=== PATIENT | female | born 2000 | race Caucasian/White ===

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

== ENCOUNTER 2022-06-17 13:46 | Outpatient (CLI) | payer OTHER, SELFPAY ==
--- NOTE | ~2022-06-17 | US_ITS ---
EXAMINATION: US OB <= 14 weeks fetus DATE: 06/17/2022 14:56 INDICATION: Uncertain dating of during first trimester TECHNIQUE: Real-time pelvic ultrasound utilizing both a transvaginal and transabdominal probe was pe rformed. The interpreting radiologist was not present for the study. COMPARISON: None. FINDINGS: The uterus measures 10.0 x 7.0 x 7.7 cm. There is an intrauterine gestational sac. A yolk sac and fe benjamin pole are identified. The crown rump length measures 2.0 cm, which correlates with an estimated ge stational age of 8 weeks and 4 days. heart motion is identified measuring 176 beats per minute (bpm) by M-mode Doppler. The right ovary measures 3.6 x 1.9 x 2.9 cm. The left ovary measures 4.7 x 5.3 x 4.1 cm. 3.4 cm anech oic left ovarian cyst. Vascular flow identified in both ovaries on color Doppler. There is no free fl uid in the pelvis. IMPRESSION: 1. Single living fetus with heart rate of 176 bpm. 2. Gestational age by ultrasound of 8 weeks 4 day(s) +/- 5 day(s) with ultrasound estimated date of delivery (ELDA) of 01/23/2023. 3. 3.4 cm left adnexal cyst/follicle. Reviewed, dictated and finalized at location L. IMPRESSION: 1. Single living fetus with heart rate of 176 bpm. 2. Gestational age by ultrasound of 8 weeks 4 day(s) +/- 5 day(s) with ultraso und estimated date of delivery (ELDA) of 01/23/2023. 3. 3.4 cm left adnexal cyst/follicle.
== END 2022-06-17 13:47 | disposition home or self-care (01) ==
PROVIDERS: PCP Obstetrics & Gynecology Gynecology; Visit Provider Advanced Practice Midwife
DX: Z36.87 Encounter for antenatal screening for uncertain dates (principal); Z3A.08 8 weeks gestation of pregnancy
CPT/HCPCS: 76801

== ENCOUNTER 2022-09-04 12:44 | Outpatient (CLI) | payer OTHER, SELFPAY ==
--- NOTE | ~2022-09-04 | US_ITS ---
EXAMINATION: US OB /maternal detail DATE: 09/04/2022 15:35 INDICATION: Assess anatomy TECHNIQUE: Multiple obstetric sonographic images performed. FINDINGS: There is a single living fetus in breech presentation. The placenta is anterior. Amniotic fluid volu me is subjectively normal. heart rate of 143 beats per minute. The following anatomy was identified as normal: Ventricles, choroid plexus, falx and cava septum pellucidum Cerebellum and cisterna magna Nuchal fold Upper lip Spine Diaphragm Stomach Kidneys Bladder 3 vessel cord and cord insertion Bilateral upper and lower extremities including hands and feet Four-vessel heart view. Right and left ventricular outflow tract views were however not obtained. The following biometric data were obtained: BPD: 4.7 cm -> 20 weeks 1 days Head circumference: 17.5 cm -> 20 weeks 0 days Abdominal circumference: 15.9 cm -> 21 weeks 0 days Femur length: 3.4 cm -> 20 weeks 5 days These measurements are concordant. Head circumference to abdominal circumference ratio: 1.10 (normal range 1.07-1.25). Estimated weight: 374 g (+/-) 56 g. or 13 oz. (+/-) 2 oz. IMPRESSION: 1. Single living fetus with breech presentation with heart rate of 143 bpm. 2. Biometric data concordant within 4 days of the previously estimated gestational age by ultrasound of 19 weeks 6 day(s) with ultrasound estimated date of delivery (ELDA) of 01/23/2023 (earlier ultraso und performed on 06/07/2022. Estimated weight is 90th percentile by Hadlock criteria when 3 is used as the ELDA. Please correlate with clinical information or earlier ultrasounds for most accu rate ELDA. 3. Normal survey but without left or right ventricular outflow tract views of the heart. Reviewed, dictated and finalized at location A. IMPRESSION: 1. Single living fetus with breech presentation with heart rate of 143 b pm. 2. Biometric data concordant within 4 days of the previously estimated gestatio nal age by ultrasound of 19 weeks 6 day(s) with ultrasound estimated date of d elivery (ELDA) of 01/23/2023 (earlier ultrasound performed on 06/07/2022. Estimate d weight is 90th percentile by Hadlock criteria when 01/23/23 is used as the ELDA. Please correlate with clinical information or earlier ultrasounds for most accurate ELDA. 3. Normal survey but without left or right ventricular outflow tract view s of the heart.
== END 2022-09-04 12:45 | disposition home or self-care (01) ==
PROVIDERS: PCP Obstetrics & Gynecology Gynecology; Visit Provider Obstetrics & Gynecology Gynecology
DX: Z36.9 Encounter for antenatal screening, unspecified (principal); Z3A.00 Weeks of gestation of pregnancy not specified
CPT/HCPCS: 76805

== ENCOUNTER 2022-09-30 08:42 | Outpatient (CLI) | payer OTHER, SELFPAY ==
--- NOTE | ~2022-09-30 | US_ITS ---
EXAMINATION: US OB follow up DATE: 09/30/2022 09:43 INDICATION: Incomplete anatomic survey, second trimester TECHNIQUE: Real-time ultrasound of the pelvis was performed. The interpreting radiologist was not pre sent for the study. COMPARISON: 09/04/2022 FINDINGS: There is a single living fetus in vertex presentation. The placenta is anterior. card iac activity and movement are noted. heart rate is 128 beats per minute (bpm). The amniot ic fluid index is subjectively normal. The ventricular outflow tracts of the heart appear normal. The following biometric data were obtained: Biparietal diameter (BPD): 6.1 cm; head circumference (HC): 22.4 cm; abdominal circumference (AC): 20 .6 cm; femur length (FL): 4.2 cm. These measurements are concordant. Estimated weight is 743 g +/- 111 g, which correlates with the 93rd percentile when 01/23/2023 is used as estimated date of delivery. As single measurements, these parameters are each equal to the following estimated gestational ages w ith ranges of +/- 2 standard deviations: BPD: 24 weeks 6 days +/- 2 weeks 1 days. HC: 24 weeks 3 days +/- 2 weeks 0 days. AC: 25 weeks 1 days +/- 2 weeks 1 days. FL: 24 weeks 4 days +/- 2 weeks 1 days. estimated gestational age based solely on measurements from this exam is 24 weeks 5 days +/- 1 weeks 5 days. IMPRESSION: 1. Single living fetus in vertex presentation. 2. Estimated weight is 743 g +/- 111 g, which correlates with the 93rd percentile when 01/24/20 23 is used as estimated date of delivery. 3. Normal ventricular outflow tracts of the heart. Reviewed, dictated and finalized at location L. IMPRESSION: 1. Single living fetus in vertex presentation. 2. Estimated weight is 743 g +/- 111 g, which correlates with the 93rd pe rcentile when 01/23/2023 is used as estimated date of delivery. 3. Normal ventricular outflow tracts of the heart.
== END 2022-09-30 08:43 | disposition home or self-care (01) ==
PROVIDERS: PCP Obstetrics & Gynecology Gynecology; Visit Provider Obstetrics & Gynecology Gynecology
DX: Z34.92 Encounter for supervision of normal pregnancy, unspecified, second trimester (principal); Z3A.24 24 weeks gestation of pregnancy
CPT/HCPCS: 76816

== ENCOUNTER 2022-11-04 12:43 | Outpatient (CLI) | payer OTHER, SELFPAY ==
--- NOTE | ~2022-11-04 | US_ITS ---
EXAMINATION: US OB follow up DATE: 11/04/2022 13:37 INDICATION: Estimated size greater than expected for estimated gestational age TECHNIQUE: Real-time ultrasound of the pelvis was performed. The interpreting radiologist was not pre sent for the study. COMPARISON: 09/30/2022 and 06/17/2022 FINDINGS: There is a single living fetus in vertex presentation. The placenta is anterior. heart rate is 130 beats per minute (bpm). The amniotic fluid volume is subjectively normal with deepest pocket tawana suring 5.5 cm. The following biometric data were obtained: BPD: 7.6 cm -> 30 weeks 4 days Head circumference: 27.4 cm -> 29 weeks 6 days Abdominal circumference: 26.1 cm -> 30 weeks 2 days Femur length: 5.9 cm -> 30 weeks 4 days These measurements are concordant. Head circumference to abdominal circumference ratio: 1.05 (normal range 0.97-1.18). Estimated weight: 1555 g (+/-) 233 g or 3 lbs. 7 oz. (+/-) 8 oz. IMPRESSION: 1. Single living fetus in vertex presentation with heart rate of 130 bpm. 2. Estimated weight is 94th percentile by Hadlock criteria when 01/23/2023 is used as the estim ated date of delivery (ELDA) based upon earliest ultrasound performed at this institution on 06/17/2022 . Please correlate with clinical information or earlier ultrasounds for most accurate ELDA. Reviewed, dictated and finalized at location L. IMPRESSION: 1. Single living fetus in vertex presentation with heart rate of 130 bpm. 2. Estimated weight is 94th percentile by Hadlock criteria when 3 is used as the estimated date of delivery (ELDA) based upon earliest ultrasoun d performed at this institution on 06/17/2022. Please correlate with clinical in formation or earlier ultrasounds for most accurate ELDA.
== END 2022-11-04 12:44 | disposition home or self-care (01) ==
PROVIDERS: PCP Obstetrics & Gynecology Gynecology; Visit Provider Advanced Practice Midwife
DX: O36.63X0 Maternal care for excessive fetal growth, third trimester, not applicable or unspecified (principal); Z3A.00 Weeks of gestation of pregnancy not specified
CPT/HCPCS: 76816

== ENCOUNTER 2022-11-18 15:13 | Outpatient (RCR) | payer OTHER, SELFPAY | END 2023-02-16 23:59 | disposition home or self-care (01) | LOC: ANHLAB 15:13 | PROVIDERS: PCP Family Medicine Adolescent Medicine; Visit Provider Obstetrics & Gynecology Gynecology | DX: Z34.93 Encounter for supervision of normal pregnancy, unspecified, third trimester (principal) | CPT/HCPCS: 36415; 85461; 86850; 86900; 86901 ==

== ENCOUNTER 2022-11-25 08:43 | Outpatient (RCR) | payer OTHER, SELFPAY ==
[2022-11-27] MEDS: RHO(D) IMMUNE GLOBULIN 300 MCG/2 ML SYRINGE IM (18:41)
== END 2023-02-23 23:59 | disposition home or self-care (01) ==
LOC: ANHLAB 08:43
PROVIDERS: PCP Family Medicine Adolescent Medicine; Visit Provider Obstetrics & Gynecology Gynecology
DX: Z29.13 Encounter for prophylactic Rho(D) immune globulin (principal); O36.0190 Maternal care for anti-D [Rh] antibodies, unspecified trimester, not applicable or unspecified; Z3A.00 Weeks of gestation of pregnancy not specified
CPT/HCPCS: 36415; 85461; 86850; 86900; 86901; 90384; 96372; J2790

== ENCOUNTER 2022-12-12 09:20 | Outpatient (CLI) | payer OTHER, SELFPAY ==
--- NOTE | ~2022-12-12 | US_ITS ---
EXAMINATION: US OB follow up DATE: 12/12/2022 10:36 INDICATION: growth assessment during third trimester TECHNIQUE: Real-time ultrasound of the pelvis was performed. The interpreting radiologist was not pre sent for the study. COMPARISON: 11/04/2022 FINDINGS: There is a single living fetus in vertex presentation. The placenta is anterior. card iac activity and movement are noted. heart rate is 133 beats per minute (bpm). The amniot ic fluid index is 11.2 cm which is normal (normal range: 8.1 cm to 24.8 cm). The following biometric data were obtained: Biparietal diameter (BPD): 8.9 cm; head circumference (HC): 32.3 cm; abdominal circumference (AC): 32 .3 cm; femur length (FL): 6.9 cm. These measurements are concordant. Estimated weight is 2833 g +/- 424 g, which correlates with the 93rd percentile when 01/23/2023 is used as estimated date of delivery. As single measurements, these parameters are each equal to the following estimated gestational ages w ith ranges of +/- 2 standard deviations: BPD: 36 weeks 0 days +/- 3 weeks 1 days. HC: 36 weeks 4 days +/- 2 weeks 5 days. AC: 36 weeks 2 days +/- 3 weeks 0 days. FL: 35 weeks 3 days +/- 3 weeks 0 days. estimated gestational age based solely on measurements from this exam is 36 weeks 1 days +/- 2 weeks 4 days. IMPRESSION: 1. Single living fetus in vertex presentation. 2. Normal amniotic fluid index. 3. Estimated weight is 2833 g +/- 424 g, which correlates with the 93rd percentile when 023 is used as estimated date of delivery. Reviewed, dictated and finalized at location B. IMPRESSION: 1. Single living fetus in vertex presentation. 2. Normal amniotic fluid index. 3. Estimated weight is 2833 g +/- 424 g, which correlates with the 93rd p ercentile when 01/23/2023 is used as estimated date of delivery.
== END 2022-12-12 09:21 | disposition home or self-care (01) ==
PROVIDERS: PCP Family Medicine Adolescent Medicine; Visit Provider Obstetrics & Gynecology Gynecology
DX: O36.63X0 Maternal care for excessive fetal growth, third trimester, not applicable or unspecified (principal); Z3A.36 36 weeks gestation of pregnancy
CPT/HCPCS: 76816

== ENCOUNTER 2023-01-19 07:23 | Inpatient (IN) | payer OTHER, SELFPAY ==
[2023-01-19] VITALS (128 sets, daily range): BP systolic 50–130; BP diastolic 19–97; PULSE 67–203; RESP 16; TEMP 36.2–37.7; O2SAT 99–100; BMI 34.1
[2023-01-19 07:54] LABS: Basophils Percent Auto 0.3 % (0.2-1.2); Eosinophils Absolute Auto 0.1 K/mm3 (0-0.3); Eosinophils Percent Auto 1.1 % (0-4.4); Hematocrit 35.9 % (37.0-47.0); Hemoglobin 11.7 g/dL (12.0-15.0); Immature Granulocyte Absolute 0.05 K/mm3 (0.00-0.031); Immature Granulocyte Percent A 0.5 % (0-0.5); Lymphocytes Absolute Auto 1.75 K/mm3 (0.9-3.2); Lymphocytes Percent Auto 16.9 % (18.3-44.2); Mean Corpuscular HGB Conc 32.6 g/dl (32-36); Mean Corpuscular Hemoglobin 28.1 pg (26-34); Mean Corpuscular Volume 86.3 fl (80-100); Mean Platelet Volume 10.4 fl (7.4-10.4); Monocytes Absolute Auto 0.6 K/mm3 (0.1-0.6); Monocytes Percent Auto 5.6 % (2.6-8.5); Neutrophils Absolute Auto 7.8 K/mm3 (1.3-6.7); Neutrophils Percent Auto 75.6 % (45.5-73.1); Platelet Count Result 193 k/mm3 (150-375); Red Blood Count 4.16 M/mm3 (4.2-5.4); Red Cell Distribution Width 13.5 % (11.5-14.5); White Blood Count 10.3 K/mm3 (4.5-10.0)
[2023-01-19] MEDS: OXYTOCIN 30 UNITS/NS 500 ML 30 UNITS/500 ML BAG IV CONT (08:16)
[2023-01-19] MEDS: LACTATED RINGERS 1,000 ML 125 ML IV CONT ×3 (08:17→14:40)
--- NOTE | 2023-01-19 08:32 | LDADM ---
This patient, Tricia Tavares, was admitted to Labor/Delivery/Recovery 107 on 01/19/23 at 07:23. Plans for labor, pain management and were discussed with patient. Patient/family oriented to hospital policies and general routines including ID bracelet, bed and alarms, visiting hours, pain management, procedures, bathroom and other care routines, personal items, smoking policy, room service/diet and guest tray routines, security routines, and visiting hours. Patient/Family are encouraged to report perceived risks to care and to ask questions if they do not understand what they are told or what they should do. See OBIX for further documentation.
--- NOTE | 2023-01-19 09:42 | WPDOBADMIT ---
Obstetrics - Admit Note Admission Note: record reviewed. No pertinent additions to the history and/or any subsequent changes in the physical findings that are not consistent with the expected course of the were found. Additions to the history and/or subsequent changes in the physical findings follow. Here at 39 wks for MIL. Cervix 3-4/50/-2 AROM with clear fluid. FHTs reactive. Continue pitocin. Plans epidural.
--- NOTE | 2023-01-19 11:21 | WPDANESEPP ---
Anes - Eval Pre Procedure Procedure: labor epidural Date/Time: 01/19/23 11:21 Surgeon: radha Preop Diagnosis: pain during labor Pre Op Diagnosis: Induction of Labor Patient Data Age: 22 Gender: F Height: 1.65 m Weight: 93 kg Last Vital Signs Temp 36.4 C 01/19/23 08:00 Pulse 92 01/19/23 11:16 Resp 16 01/19/23 08:00 BP 112/69 01/19/23 11:16 O2 Del Method Room Air 01/19/23 08:05 Allergies Allergy/AdvReac Type Severity Reaction Status Date / Time No Known Allergies Allergy Verified 01/19/23 08:23 Home Medications Medication Instructions Recorded Confirmed Type vits no.126-ferrous fum 1 tablet PO DAILY 12/30/22 01/19/23 History 28 mg iron-folic acid 800 mcg tablet (Classic ) Laboratory Tests 01/19/23 07:38 WBC 10.3 H K/mm3 (4.5-10.0) RBC 4.16 L M/mm3 (4.2-5.4) Hgb 11.7 L g/dL (12.0-15.0) Hct 35.9 L % (37.0-47.0) MCV 86.3 fl (80-100) MCH 28.1 pg (26-34) MCHC 32.6 g/dl (32-36) RDW 13.5 % (11.5-14.5) Plt Count 193 k/mm3 (150-375) MPV 10.4 fl (7.4-10.4) Immature Gran % (Auto) 0.5 % (0-0.5) Neut % (Auto) 75.6 H % (45.5-73.1) Lymph % (Auto) 16.9 L % (18.3-44.2) [place] % (Auto) 5.6 % (2.6-8.5) Eos % (Auto) 1.1 % (0-4.4) Baso % (Auto) 0.3 % (0.2-1.2) Lymph # (Auto) 1.75 K/mm3 (0.9-3.2) [place] # (Auto) 0.6 K/mm3 (0.1-0.6) Eos # (Auto) 0.1 K/mm3 (0-0.3) Baso # (Auto) 0.0 K/mm3 (0.0-0.1) Abs Immat Gran (auto) 0.05 H K/mm3 (0.00-0.031) Absolute Neuts (auto) 7.8 H K/mm3 (1.3-6.7) Absolute Nucleated RBC 0.0 K/mm3 (0.0-0.012) Nucleated RBC % 0.0 % (0.0-0.2) RPR Pending Blood Type A Negative Antibody Screen Positive Antibody Identification Passive Due to RH Imm Glob Antigen Identification TNP LISA, IgG Interpret Not Performed LISA, Poly Interpret Neg LISA, Complement Interp Not Performed Patient hx anesthesia problems: none Family hx anesthesia problems: none Results Review: All pre-operative results and documents have been reviewed as part of the pre-operative evaluation. [facility] Past Medical History Medical History (normal spontaneous vaginal delivery) 07/24 Patient denies significant medical history Family History Family History Other No pertinent family history Social History Social History Smoking status: Never smoker Second hand tobacco smoke exposure: Yes (FOB smokes) Substance use: never Lack of Transportation: No Lack of Food: Never True Current Housing: I Have Housing Concerned About Future Housing: No Difficulty Paying Gas/Electric Bills: No Difficulty Paying for Meds: No Currently Unemployed: No Education: High School Diploma/GED Difficulty w/ Childcare or Family Care: No Gender identity (if verbalized by the patient): Female Spiritual care concerns: No Exam Day of Procedure 01/19/23 11:21 Patient weight: normal Heart: regular rate and rhythm Lungs: normal air movement Airway: Mallampati scale class II Neurological: alert and oriented
--- NOTE | 2023-01-19 17:05 | PM.OBPRVD ---
OB - Delivery Note Procedure Delivery date: 01/19/23 Procedure: Induction method: AROM and Per Pitocin Protocol Delivery monitor: External FHT and External Uterine Route of delivery: Episiotomy description: None Laceration Description: None Specimen: No Quantitative Blood Loss (ml): 100 Anesthesia type: Epidural Disposition: Floor Baby Date of : 01/19/23 Weeks of gestation at delivery: 39 Infant gender: Male presentation: vertex position: Right Occiput Anterior Placenta delivery description: Spontaneous Cord Vessel Description: 3 Vessels and Delayed Cord Clamping score one minute: 8 score five minutes: 9
--- NOTE | 2023-01-19 17:09 | P.DS_ITS ---
DS: Admitting Diagnosis Discharge Date 01/20/23 Admitting Diagnosis IUP 39 wks MIL DS: Discharge Diagnosis Discharge Diagnosis (1) (normal spontaneous vaginal delivery): Code(s): O80 - Encounter for full-term uncomplicated delivery Status: Acute OB - DS: Summary OB Procedures : Ultrasound OB Procedures Intrapartum: Spontaneous Vag Delivery OB Procedures: : None Peripartum Data Delivery Method: Natural Vaginal Laceration Description: None complications: none Status at Discharge Functional status at discharge: independent ambulation Overall status at discharge: patient is progressing back to baseline Time Spent with Patient Time attestation: Total time spent providing and/or coordinating discharge services: DS: Data Data Completed and Pending Labs on day of discharge: Labs from last 24 hours 01/19/23 07:38 WBC 10.3 H RBC 4.16 L Hgb 11.7 L Hct 35.9 L MCV 86.3 MCH 28.1 MCHC 32.6 RDW 13.5 Plt Count 193 MPV 10.4 Immature Gran % (Auto) 0.5 Neut % (Auto) 75.6 H Lymph % (Auto) 16.9 L [place] % (Auto) 5.6 Eos % (Auto) 1.1 Baso % (Auto) 0.3 Lymph # (Auto) 1.75 [place] # (Auto) 0.6 Eos # (Auto) 0.1 Baso # (Auto) 0.0 Abs Immat Gran (auto) 0.05 H Absolute Neuts (auto) 7.8 H Absolute Nucleated RBC 0.0 Nucleated RBC % 0.0 RPR Pending Blood Type A Negative Antibody Screen Positive Antibody Identification Passive Due to RH Imm Glob Antigen Identification TNP LISA, IgG Interpret Not Performed LISA, Poly Interpret Neg LISA, Complement Interp Not Performed Discharge Plan Discharge Attending physician on discharge: Sharon Harmon Discharging Clinician: Sharon Harmon Anticipated Discharge Date/Time: 01/20/23 17:11 Patient Disposition: Home, Self-Care Activity: may shower and pelvic rest Diet: regular Patient Instructions: Antibiotic Form Stand Alone Forms: General Discharge Information Follow-up/Referrals: Sharon Harmon MD [Physician] - 6 Weeks Discharge Medications: No Action Classic 28 mg iron- 800 mcg Tablet 1 tablet PO DAILY Date of admission: 01/19/23 07:23 Primary Care Provider: Shyam David Admitting Provider: Sharon Harmon Attending physician on admission: Sharon Harmon Condition: Stable Care Plan Goals: Anjali burkett
[2023-01-19] MEDS: OXYTOCIN 30 UNITS/NS 500 ML 30 UNITS/500 ML BAG 125 UNITS IV CONT (17:27)
--- NOTE | 2023-01-19 21:26 | OBPPTRN ---
01/19/2023 at 1915 Patient transferred to post room #283 in wheelchair. Support person present and oriented to unit, room, information board, rooming in, admission packet and security measures. Patient verbalizes understanding.
[2023-01-19] MEDS: IBUPROFEN 600 MG TABLET PO (23:26)
[2023-01-20 04:19] LABS: Hemoglobin 10.6 g/dL (12.0-15.0)
[2023-01-20] MEDS: WITCH HAZEL 40 PADS 1 PAD TOPICAL (07:17)
[2023-01-20] MEDS: DOCUSATE SODIUM 100 MG CAPSULE PO (07:17)
[2023-01-20] MEDS: MULTIVIT/MIN/PREN/FOL AC/IRON TABLET 1 TAB PO (07:17)
[2023-01-20] MEDS: IBUPROFEN 600 MG TABLET PO (07:17)
--- NOTE | 2023-01-20 07:53 | PM.OBPNVD ---
OB - PN: Subj Subjective Date/time seen: 01/20/23 07:53 Patient comments: no complaints and pain well controlled baby status: doing well OB - PN: Obj Data Labs 01/20/23 03:40 Labs: Laboratory Results - last 24 hr 01/19/23 01/20/23 07:38 03:40 WBC 10.3 H RBC 4.16 L Hgb 11.7 L 10.6 L Hct 35.9 L 32.0 L MCV 86.3 MCH 28.1 MCHC 32.6 RDW 13.5 Plt Count 193 MPV 10.4 Immature Gran % (Auto) 0.5 Neut % (Auto) 75.6 H Lymph % (Auto) 16.9 L [place] % (Auto) 5.6 Eos % (Auto) 1.1 Baso % (Auto) 0.3 Lymph # (Auto) 1.75 [place] # (Auto) 0.6 Eos # (Auto) 0.1 Baso # (Auto) 0.0 Abs Immat Gran (auto) 0.05 H Absolute Neuts (auto) 7.8 H Absolute Nucleated RBC 0.0 Nucleated RBC % 0.0 Blood Type A Negative A Negative Antibody Screen Positive TNP Antibody Identification Passive Due to RH Imm Glob Antigen Identification TNP LISA, IgG Interpret Not Performed LISA, Poly Interpret Neg LISA, Complement Interp Not Performed Screen Negative Baby's Blood Type O pos Baby's LISA Positive Doses of RhIg Required 1 OB - PN A/P Plan day: 1 Plan: routine care, discharge home, follow up 6 weeks and other (Sudeep for bc. Condoms until placed) Time Spent With Patient Time: Total time spent is greater than 50% in coordination of care (as documented) at patient's floor/unit and/or counseling patient: Exam : Bimanual exam- vagina & uterus: other (Uterus firm, nt @U)
[2023-01-20 08:57] LABS: Rapid Plasma Reagin Non-Reactive (NonReactive)
[2023-01-20 09:00] VITALS: BP 108/69; PULSE 74; RESP 16; TEMP 36.4; O2SAT 98
[2023-01-20] MEDS: RHO(D) IMMUNE GLOBULIN 300 MCG/2 ML SYRINGE IM (09:07)
[2023-01-20] MEDS: ACETAMINOPHEN 325 MG TABLET 650 MG PO (12:24)
[2023-01-20 12:54] VITALS: BP 111/68; PULSE 86; RESP 16; TEMP 36.4; O2SAT 100
--- NOTE | 2023-01-20 15:49 | PC.NURSE ---
[id number] Mother verbalizes she is able to independently latch with appropriate positioning/alignment. She denies any nipple discomfort and is responsively . Infant is currently meeting outcomes for weight, output, jaundice and feeding frequencies of 8-12 times in 24 hours. Mother is pumping to see how much milk she has. Encouraged mother to breastfeed often and cautioned pumping too much creating an oversupply. Mother states she pumped and breastfed with her first child (now 3 yrs old) and follows sources online. Encouraged mother to follow an IBCLC or MD for appropriate guidance. We discussed preventing infection and when to call MD or . Mother declines any additional assistance/education at this time. Mother voiced understanding of information shared and the mom reminded of the mom/baby guide for an additional resource.
[2023-01-21 16:09] VITALS: BP 112/60; PULSE 90; RESP 18; TEMP 36.9; O2SAT 99
== END 2023-01-20 18:25 | disposition home or self-care (01) | DRG 560 ==
LOC: ANHLDR 17:11 → ANHOB2 19:46
PROVIDERS: Admitting Provider Obstetrics & Gynecology Gynecology; PCP Family Medicine Adolescent Medicine; Visit Provider Obstetrics & Gynecology Gynecology
DX: O69.81X0 Labor and delivery complicated by cord around neck, without compression, not applicable or unspecified (principal); Z37.0 Single live birth; Z3A.39 39 weeks gestation of pregnancy
CPT/HCPCS: 36415; 85014; 85018; 85025; 85461; 86592; 86850; 86880; 86900; 86901; 90384; A9270; J2590; J2790; J2795; J7120

== ENCOUNTER 2023-05-30 03:18 | Emergency (ER) | payer OTHER, SELFPAY ==
[2023-05-30 03:22] VITALS: BP 115/63; PULSE 96; RESP 16; TEMP 36.8; O2SAT 100
--- NOTE | 2023-05-30 06:41 | PC.NURSE ---
Patient comes to the triage desk and asks to have her IV removed that was started by EMS. IV removed. Patient ambulates from the waiting room in no apparent distress without incident.
== END 2023-05-30 07:02 | disposition left against medical advice (07) ==
PROVIDERS: PCP Family Medicine Adolescent Medicine
DX: R10.10 Upper abdominal pain, unspecified (principal)
CPT/HCPCS: 99199

== ENCOUNTER 2023-09-03 16:46 | Emergency (ER) | payer OTHER, SELFPAY ==
--- NOTE | 2023-09-03 16:50 | ED.SKABFB ---
HPI - Skin/Abscess/Foreign Bdy General Chief complaint: Skin/Abscess/Foreign Body Stated complaint: breast pain Time Seen by Provider: 09/03/23 16:49 Source: patient Mode of arrival: ambulatory Limitations: no limitations History of Present Illness HPI narrative: Patient is a 23-year-old female that presents with left breast pain for 3-4 days. Reports she thought it was a clot duct. Since then it has become red, swollen, and painful. Patient also had fever fatigue and nausea. Patient is currently 7-month-old. Related Data Home Medications Medication Instructions Recorded Confirmed vits no.126-ferrous fum 1 tablet PO DAILY 12/30/22 09/03/23 28 mg iron-folic acid 800 mcg tablet (Classic ) Allergies Allergy/AdvReac Type Severity Reaction Status Date / Time No Known Allergies Allergy Verified 09/03/23 16:54 Review of Systems Review of Systems: All systems reviewed & are unremarkable except as noted in HPI and below Constitutional: Constitutional: Denies body ache(s), Denies chills, Reports fatigue, Reports fever(s), Denies headache(s), Denies malaise and Denies weakness Eyes: Eyes: Denies blurry vision, Denies irritation and Denies loss of vision ENT: Denies otalgia, Denies headache(s), Denies nasal discharge, Denies sinus pain and Denies sore throat Cardiovascular: Cardiovascular: Denies chest pain, Denies irregular heart rhythm and Denies dyspnea Respiratory: Respiratory: Denies dyspnea Gastrointestinal: Gastrointestinal: Denies abdominal pain, Denies melena, Denies hematochezia, Denies diarrhea, Denies nausea and Denies vomiting Musculoskeletal: Musculoskeletal: Denies back pain, Denies myalgias and Denies arthralgias Integumentary/Breasts: Skin/Breast: Reports breast swelling, Reports breast pain, Denies pruritus, Reports erythema and Denies rash Neurologic: Denies headache(s), Denies loss of vision and Denies weakness Psychiatric: Psychiatric: Reports no additional psychiatric complaints Endocrine: Endocrine: Denies fatigue PMFSH Past Medical History Medical History (normal spontaneous vaginal delivery) Patient denies significant medical history Family History Family History Other No pertinent family history Social History Social History Smoking status: Never smoker Second hand tobacco smoke exposure: Yes (FOB smokes) Substance use: never Lack of Transportation: No Lack of Food: Never True Current Housing: I Have Housing Concerned About Future Housing: No Difficulty Paying Gas/Electric Bills: No Difficulty Paying for Meds: No Currently Unemployed: No Education: High School Diploma/GED Difficulty w/ Childcare or Family Care: No Gender identity (if verbalized by the patient): Female Spiritual care concerns: No Comments At time of signature, agree with nursing past medical, surgical, social and family history. There is no relevant family history pertinent to the presenting complaint. Exam Const: General: cooperative, healthy appearing, comfortable, no acute distress and well nourished Nutritional Appearance: well nourished Orientation/consciousness: patient oriented x3 Limitations: no limitations HENMT: Head: normal to inspection, normocephalic and atraumatic Ears: hearing grossly normal bilaterally and external ears normal Face/Nose/Sinus: Normal external nose present, normal facial exam and face symmetric Face and sinus: normal facial exam and face symmetric Mouth: Yes lip normal Eyes: General: appearance normal, both eyes and all related structures Alignment and Position: alignment normal and position normal Periorbital: periorbital findings normal Eyelids: eyelids normal Pupils: Equal, round and reactive pupils present EOM: EOMs intact bilateral
[2023-09-03 16:56] VITALS: BP 112/71; PULSE 106; RESP 18; TEMP 37.7; O2SAT 100
== END 2023-09-03 17:30 | disposition home or self-care (01) ==
PROVIDERS: Emergency Provider Nurse Practitioner Family; PCP Family Medicine Adolescent Medicine
DX: N61.0 Mastitis without abscess (principal)
CPT/HCPCS: 99213; G0463